=== PATIENT | female | born 1965 | race Caucasian/White ===

== ENCOUNTER 2018-09-21 07:32 | Inpatient (IN) | payer OTHER ==
[2018-09-21] VITALS (20 sets, daily range): BP systolic 95–125; BP diastolic 51–72; PULSE 64–99; RESP 13–20; Ht 157.5 cm; Wt 81.7 kg
[~2018-09-21] VITALS: Ht 157.5 cm; Wt 81.7 kg
[~2018-09-21 07:32] MED LIST: DESFLURANE 15 MIN ONE; LIDOCAINE 2% (SDV) 5 ML INJ ONE; PROPOFOL 200 MG INJ ONE
[2018-09-21] MEDS ORDERED: SERT100T PO (08:24)
[2018-09-21] MEDS ORDERED: TRAZ150T65 PO (08:25)
[2018-09-21] MEDS ORDERED: BUSP10TA2 PO (08:25)
[2018-09-21] MEDS ORDERED: LACTATED RINGER'S 1,000 ML IV SCH (08:30)
--- NOTE | 2018-09-21 08:51 | PREAC ---
Date/Time of Note Date/Time of Note DATE: 09/21/18 TIME: 08:50 Anesthesia Eval and Record Evaluation Time Pre-Procedure Interview DATE: 09/21/18 TIME: 08:50 Age 53 Sex female NPO: 8 hrs Preoperative diagnosis fibroids Planned procedure MARY KATE Past Medical History Past Medical History: Includes GI: Obesity Psych: Depression Surgery & Anesthesia Issues No known issue Meds Anticoagulation: No Beta Delmar within 24 hr: No Reason Beta Delmar not given: Pt. not on B-Delmar Reported Medications Trazodone Hcl* (Trazodone Hcl*) 150 Mg Tablet, 150 MG PO QHS, #30 TAB 09/21/18 Buspirone Hcl* (Buspirone Hcl*) 10 Mg Tab, 15 MG PO DAILY, TAB 09/21/18 Sertraline Hcl* (Zoloft*) 100 Mg Tablet, 100 MG PO DAILY, #30 TAB 09/21/18 Current Medications Lactated Ringer's 1,000 ml @ 25 mls/hr Q24H IV Last administered on 09/21/18at 08:09; Admin Dose 25 MLS/HR; Start 09/21/18 at 08:30 Meds reviewed: Yes Allergies Coded Allergies: No Known Allergy (Unverified , 09/21/18) Allergies Reviewed: Yes Labs/Studies Labs Reviewed: Reviewed by anesthesiologist Blood Bank Test 09/21/18 07:48 09/21/18 08:08 Blood Product Summary Counts Blood Type O POSITIVE test: N/A Pre-procedure Exam Last vitals Vital Signs Date Temp Pulse Resp B/P (MAP) Pulse Ox O2 O2 Flow FiO2 Time Delivery Rate 09/21/18 96.9 96 16 125/63 95 Room Air 07:52 (83) Airway: Adequate mouth opening, Adequate thyromental dist Mallampati: Mallampati II Teeth: Normal Lung: Normal Heart: Normal ASA Physical Status ASA physical status: 2 Emergency: None Planned Anesthetic General/MAC: ETT Neuraxial: Spinal Nerve block: TAP (bilateral) Planned Pain Management Sub-arachniod narcotics Pre-operative Attestations Prior to commencing anesthesia and surgery, the patient was re-evaluated, there was verification of: *The patient's identity *The results of appropriate recent lab work and preoperative vital signs *The above evaluation not changing prior to induction *Anesthetic plan, risk benefits, alternative and complications discussed with patient/family; questions answered; patient/family understands, accepts and wishes to proceed. ROSALIO MARRUFO Sep 21, 2018 08:51
[2018-09-21] MEDS ORDERED: DIPHENHYDRAMINE 50 MG INJ IV PRN (09:00)
[2018-09-21] MEDS ORDERED: ALBUTEROL 0.083% (NEB) 2.5 MG/3 ML AMP HHN PRN (09:00)
[2018-09-21] MEDS ORDERED: MEPERIDINE 25 MG INJ IV PRN (09:00)
[2018-09-21] MEDS ORDERED: ONDANSETRON 4 MG INJ IV PRN (09:00)
[2018-09-21] MEDS ORDERED: FENTAnyl 50 MCG/ML VIAL IV PRN ×3 (09:00)
[2018-09-21] MEDS ORDERED: HYDROmorphONE 1 MG/5 ML IV SYRINGE IV PRN ×3 (09:00)
[2018-09-21] MEDS ORDERED: METOCLOPRAMIDE 10 MG INJ IV PRN (09:00)
--- NOTE | 2018-09-21 09:12 | PREOPHP ---
DATE OF ADMISSION: 09/21/2018 HISTORY OF PRESENT ILLNESS: A 53-year-old female, 4, para 2, abortions 2. This patient was referred to me by her clinic due to intractable pelvic pain, menometrorrhagia, a large fibroid uterus , endometrial mass, anemia and intractability medically of her uterus with even injections of Depo sh ot, oral contraceptives and other means. The studies were done in the clinic that showed multiple fi broids with possibility of intracavitary fibroids. The patient had an ultrasound that revealed that she has multiple fibroids and she is undergoing a hysterectomy and bilateral salpingectomy. SURGICAL HISTORY: Her history is for a laparoscopic cholecystectomy, D and C, face surgery and nose. ALLERGIES: SHE IS NOT ALLERGIC TO ANY MEDICATIONS. MEDICATIONS: She is only on vitamins and iron due to her chronic bleeding and anemia. FAMILY HISTORY: Noncontributory. MEDICATIONS: The patient takes ibuprofen at times when she has severe pain and she gets partially rel ieved pain. PHYSICAL EXAMINATION: GENERAL APPEARANCE: The patient is anemic. VITAL SIGNS: Blood pressure is 120/90, temperature is afebrile. She weighs 184. She is 5 feet 2 in ches. HEAD AND NECK: Normal. BREASTS: Soft, nontender, no masses. CHEST: Clear. HEART: Normal sinus rhythm. BACK: Normal. ABDOMEN: Soft. No masses. PELVIC: External genitalia is negative. The cervix was examined being large and the uterus large, p alpable with multiple masses. Adnexa were unable to differentiate from the lumpiness of the uterus. DIAGNOSES: Intractable pelvic pain, menometrorrhagia, anemia, multiple large fibroid uterus, endometr ial mass and anemia. PLAN: She is undergoing a TAHBS. The patient was fully evaluated and she had a CT scan that revealed that there was no lymphadenopathy and a clear chest x-ray. She has been advised of the possible ris ks and possible complications of the procedure with her alternatives and options. Written informatio n was provided. She had no more questions and agreed to go ahead with the procedure with full unders tanding and no more questions. Dictated By: PRANEETH MANZANO/DARRICK Conf#: [id number] DID#: [id number]
--- NOTE | 2018-09-21 09:13 | HPN ---
Date/Time of Note Date/Time of Note DATE: 09/21/18 TIME: 09:13 Interval H&P Admission Note Pt. seen H&P reviewed: No system changes PRANEETH BAUMAN MD Sep 21, 2018 09:13
[2018-09-21] MEDS ORDERED: MIDAZOLAM 1 MG/ML 2 ML INJ ONE (09:23)
[2018-09-21] MEDS ORDERED: FENTAnyl 50 MCG/ML VIAL ONE (09:23)
[2018-09-21] MEDS ORDERED: morphine SULFATE/PF (10 MG/10 ML) INJ ONE (09:27)
[2018-09-21] MEDS ORDERED: ROPIVACAINE 0.5 % 30 ML VIAL ONE (09:41)
[2018-09-21] MEDS ORDERED: SUGAMMADEX SODIUM 200 MG/2 ML VIAL IV ONE (11:44)
[2018-09-21] MEDS ORDERED: ROCURONIUM 50 MG INJ ONE (11:44)
[2018-09-21] MEDS ORDERED: SUCCINYLCHOLINE CHLORIDE 100 MG/5 ML SYG IV ONE (11:44)
[2018-09-21] MEDS ORDERED: CEFAZOLIN 1 GM INJ ONE (11:44)
--- NOTE | 2018-09-21 12:12 | SIPON ---
Date/Time of Note Date/Time of Note DATE: 09/21/18 TIME: 12:09 Operative Report Preoperative Diagnosis Intractable pelvic pain and menometrorrhagia. Anemia Large multiple fibroid uterus Endometrial mass Possible admissions Hypertension Obesity Postoperative Diagnosis Same Operation/Procedure Performed Total abdominal hysterectomy bilateral salpingectomy Surgeon see signature line assistant to the director Ms Brittni MUÑOZ Anesthesia: general Estimated blood loss: 0 - 10 ml's Transfusion Required none Specimen Uterus and tubes Grafts/Implants none Complications none PRANEETH BAUMAN MD Sep 21, 2018 12:12
[2018-09-21] MEDS ORDERED: ONDANSETRON INJ 6 MG in DEXTROSE 5% 50 ML IVPB PRN (12:30)
[2018-09-21] MEDS ORDERED: DIPHENHYDRAMINE 50 MG CAP PO PRN (12:30)
[2018-09-21] MEDS ORDERED: ZOLPIDEM 5 MG TAB PO PRN (12:30)
[2018-09-21] MEDS: LACTATED RINGER'S 1,000 ML IV SCH ×2 (13:21→20:46)
[2018-09-21] MEDS: KETOROLAC 30 MG INJ IV SCH ×2 (13:21→18:46)
[2018-09-21] MEDS: CEFAZOLIN 1 GM/50 ML (PMX) 50 ML IVPB SCH ×2 (14:00→20:46)
--- NOTE | 2018-09-21 15:06 | OPR ---
DATE OF OPERATION: 09/21/2018 PROCEDURE: Total abdominal hysterectomy, bilateral salpingectomy. PREOPERATIVE DIAGNOSES: 1. Intractable pelvic pain, menometrorrhagia and anemia, large multiple fibroid uterus. 2. Endometrial mass, pelvic adhesions, hypertension. POSTOPERATIVE DIAGNOSES: 1. Intractable pelvic pain, menometrorrhagia and anemia, large multiple fibroid uterus. 2. Endometrial mass, pelvic adhesions, hypertension. 3. Obesity. SURGEON: Praneeth Garcia MD GROCERY CLERK STOCKING: TONI José ANESTHESIOLOGIST: Koko Dorantes MD ANESTHESIA: Duramorph and general anesthesia. COMPLICATIONS: None. PROCEDURE: The patient was given Duramorph and general anesthesia, placed in the supine position. A Burton catheter was placed in the bladder. A transverse incision was made suprapubically over the mi dline for about 10 cm in length. The abdominal cavity was reached and the exploration of the cavity revealed that the uterus was very large with multiple fibroids. Both tubes and ovaries were normal. The uterus was held and with the bipolar instrument, the round ligaments were clamped, burned and cu t in both sides and then the ovarian ligament and tube were treated the same way. The Metzenbaum wer e used to cut on the anterior broad ligament and the bladder flap was pushed down and then the skelet onization of the uterine vessels were done and the instruments, the bipolar voyant instrument was use d for the cauterization of both uterine vessels. The cardinal ligaments and uterosacral ligaments we re clamped with straight clamps and at this time, the uterus was cut at the level of the cervix for v isualization. The uterosacral ligaments and cardinal ligaments were cut and ligated with #1 Vicryl a nd at this point, the posterior vaginal cuff was entered with scissors and Carmen's were used and the whole cervix was removed holding the lateral parts of the vagina and the posterior and anterior wall . The rsubpo-wz-mtsrg suture was used in both corners of the vagina and the vagina was closed with i nterrupted sutures with #1 Vicryl. Hemostasis was good. The cavity was checked under water and it w as with small oozing from the back of the bladder that was sutured with a single stitch with 2-0 Vicr yl. Hemostasis was good again and at this point, the ureters were tracked down far away from our delmi jordyn. This was done in both sides. The right and left tube were held with peons and the mesosalpinx was clamped with a Geraldo and removed and the tube was removed. The ycyiky-df-ricma sutures with an 0 Vicryl were used on this area and good hemostasis was observed. Both ovaries were normal and func tioning. There were no signs of endometriosis. The piece of Surgicel was left in the vaginal cuff a nd both ovaries were covered with Interceed that possibly prevent adhesions. The sponge counts and i nstrument counts were correct. Intravenous antibiotics were given for prophylaxis. The peritoneum w as closed with a 2-0 Vicryl suture, #0 PDS looped suture for the fascia, 2-0 Vicryl for the subcutane ous tissue, 3-0 Monocryl subcuticular to the skin. Dermabond was used and a pressure dressing. The patient tolerated the procedure well and left the OR awake and stable. Sponge counts, instrument cou nts and needle counts were correct again and intravenous antibiotics were given for prophylaxis. The patient left the OR awake and stable. Dictated By: PRANEETH MANZANO/DARRICK Conf#: [id number] DID#: [id number]
[2018-09-21] MEDS: HYDROCODONE/APAP (5/325) TAB PO PRN (16:04)
--- NOTE | 2018-09-21 16:52 | RADRPT ---
Vent Rate: 76 bpm RR Interval: 788 msec [place] Interval: 194 msec QRS Duration: 84 msec QT Interval: 424 msec QTC Interval: 478 msec P-R-T [place]: 41 - 41 - 31 degrees Sinus rhythm...normal P axis, V-rate 50- 99 Electronically Signed By: Dipak Cuba
[2018-09-21] MEDS: METOCLOPRAMIDE 10 MG TAB PO SCH (18:00)
[2018-09-21] MEDS: traZODone 50 MG TAB PO SCH (20:46)
[2018-09-21] MEDS: BUSPIRONE 5 MG TAB PO SCH (20:46)
[2018-09-21] MEDS: ENOXAPARIN 30 MG/0.3 ML SYG SC SCH (20:48)
[2018-09-22] MEDS: METOCLOPRAMIDE 10 MG TAB PO SCH ×4 (00:03→17:18)
[2018-09-22] MEDS: KETOROLAC 30 MG INJ IV SCH ×4 (00:03→17:18)
[2018-09-22 00:20] VITALS: BP 90/52; PULSE 67; RESP 18
[2018-09-22 04:49] VITALS: BP 94/50; PULSE 77; RESP 18
[2018-09-22] MEDS: CEFAZOLIN 1 GM/50 ML (PMX) 50 ML IVPB SCH (05:06)
[2018-09-22] MEDS: LACTATED RINGER'S 1,000 ML IV SCH (05:07)
--- NOTE | 2018-09-22 08:16 | PN ---
Date/Time of Note Date/Time of Note DATE: 09/22/18 TIME: 08:14 Assessment/Plan Lines/Catheters IV Catheter Type (from Nrsg): Peripheral IV Subjective 24 Hr Interval Summary Day 1 postop Afebrile. Feels good No hemoglobin but she has no symptoms due to chronic anemia Patient will have IV iron Encouraged ambulation Tolerating diet Incision healing well Constitutional: no complaints Pain Control: moderate Detailed Summary Eyes: no complaints ENT: no complaints Respiratory: no complaints Cardiovascular: no complaints Gastrointestinal: no complaints Genitourinary: no complaints Musculoskeletal: no complaints Skin: no complaints Neurologic: no complaints Endocrine: no complaints Lymphatic: no complaints Psychological: no complaints, nl mood/affect Immunologic: no complaints Exam/Review of Systems Vital Signs Vitals Vital Signs Date Temp Pulse Resp B/P (MAP) Pulse Ox O2 O2 Flow FiO2 Time Delivery Rate 09/22/18 98.2 77 18 94/50 (65) 96 04:49 09/21/18 Room Air 15:30 09/21/18 2.0 14:15 Intake and Output 09/21/18 09/21/18 09/22/18 1515:00 23:00 07:00 IntakeIntake Total 2000 ml 1150 ml 1750 ml OutputOutput Total 90 ml 200 ml 1000 ml BalanceBalance 1910 ml 950 ml 750 ml Exam Constitutional: alert, oriented, well developed Psych: no complaints, nl mood/affect Head: normocephalic, atraumatic Eyes: nl conjunctiva, EOMI, nl lids, nl sclera ENMT: nl external ears & nose, nl lips & teeth, nl nasal mucosa & septum, mucosa pink and moist Neck: supple, non-tender Respiratory: clear to auscultation, normal air movement Cardiovascular: regular rate and rhythm, nl pulses Gastrointestinal: soft, nl liver, spleen, non-tender Musculoskeletal: nl extremities to inspection, nl gait and stance Extremities: normal pulses Neurological: NAPHTHALENE OPERATOR II-XII intact, nl mental status, nl speech, nl strength Skin: nl turgor, rash or lesions Lymph: nl lymph nodes Results Result Diagram: 09/22/18 0456 09/22/18 0456 PRANEETH BAUMAN MD Sep 22, 2018 08:16
[2018-09-22 08:21] VITALS: BP 90/57; PULSE 78; RESP 18
[2018-09-22] MEDS: BUSPIRONE 5 MG TAB PO SCH ×3 (09:07→21:24)
[2018-09-22] MEDS: SERTRALINE 100 MG TAB PO SCH (09:07)
[2018-09-22] MEDS: ENOXAPARIN 30 MG/0.3 ML SYG SC SCH ×2 (09:19→21:29)
[2018-09-22] MEDS: HYDROCODONE/APAP (5/325) TAB PO PRN ×2 (10:28→21:36)
[2018-09-22] MEDS ORDERED: SENNA TAB PO PRN (10:30)
[2018-09-22] MEDS: SOD FERRIC GLUC COMPLX 125 MG in SOD CHLORIDE 0.9% 100 ML IVPB SCH (14:13)
[2018-09-22 14:25] VITALS: BP 116/58; PULSE 74; RESP 18
--- NOTE | 2018-09-22 15:30 | PAC ---
Date/Time of Note Date/Time of Note DATE: 09/22/18 TIME: 15:30 Post-Anesthesia Notes Post-Anesthesia Note Last documented vital signs Vital Signs Date Temp Pulse Resp B/P (MAP) Pulse Ox O2 O2 Flow FiO2 Time Delivery Rate 09/22/18 98.5 74 18 116/58 97 14:25 (77) 09/21/18 Room Air 15:30 09/21/18 2.0 14:15 Activity: WNL Respiratory function: WNL Cardiovascular function: WNL Mental status: Baseline Pain reasonably controlled: Yes Hydration appropriate: Yes Nausea/Vomiting absent: Yes ROSALIO MARRUFO Sep 22, 2018 15:30
[2018-09-22 19:18] VITALS: BP 120/63; PULSE 88; RESP 20
[2018-09-22] MEDS: traZODone 50 MG TAB PO SCH (21:24)
[2018-09-22] MEDS ORDERED: BISACODYL (EC) 5 MG TAB PO ONE (22:00)
[2018-09-23] MEDS: METOCLOPRAMIDE 10 MG TAB PO SCH ×4 (00:15→17:57)
[2018-09-23] MEDS: KETOROLAC 30 MG INJ IV SCH ×2 (00:15→06:00)
[2018-09-23 02:22] VITALS: BP 119/57; PULSE 80; RESP 18
[2018-09-23 08:48] VITALS: BP 110/59; PULSE 72; RESP 18
[2018-09-23] MEDS: BUSPIRONE 5 MG TAB PO SCH ×3 (08:52→21:32)
[2018-09-23] MEDS: SERTRALINE 100 MG TAB PO SCH (08:52)
[2018-09-23] MEDS: ENOXAPARIN 30 MG/0.3 ML SYG SC SCH (08:54)
--- NOTE | 2018-09-23 10:12 | PN ---
Date/Time of Note Date/Time of Note DATE: 09/23/18 TIME: 10:10 Assessment/Plan Lines/Catheters IV Catheter Type (from Nrsg): Saline Lock Burton in Place (from Nrsg): Yes Subjective 24 Hr Interval Summary Second day post operative feeling good . Afebrile, passing gases, ambulatory, with anxiety and hot flashes incision healing well . Encouraged ambulation Feeding: advancing diet Pain Control: mild Detailed Summary Eyes: no complaints ENT: no complaints Respiratory: no complaints Cardiovascular: no complaints Gastrointestinal: no complaints Genitourinary: no complaints Musculoskeletal: no complaints Skin: no complaints Neurologic: no complaints Endocrine: no complaints Lymphatic: no complaints Psychological: no complaints, nl mood/affect Immunologic: no complaints Exam/Review of Systems Vital Signs Vitals Vital Signs Date Temp Pulse Resp B/P (MAP) Pulse Ox O2 O2 Flow FiO2 Time Delivery Rate 09/23/18 97.8 72 18 110/59 94 Room Air 08:48 (76) 09/21/18 2.0 14:15 Intake and Output 09/22/18 09/22/18 09/23/18 1515:00 23:00 07:00 IntakeIntake Total 1215 ml 580 ml BalanceBalance 1215 ml 580 ml Exam Constitutional: alert, oriented, well developed Psych: no complaints, nl mood/affect Head: normocephalic, atraumatic Eyes: nl conjunctiva, EOMI, nl lids, nl sclera ENMT: nl external ears & nose, nl lips & teeth, nl nasal mucosa & septum, mucosa pink and moist Neck: supple, non-tender Respiratory: clear to auscultation, normal air movement Cardiovascular: regular rate and rhythm, nl pulses Gastrointestinal: soft, nl liver, spleen, non-tender Musculoskeletal: nl extremities to inspection, nl gait and stance Extremities: normal pulses Neurological: RESEARCH WORKER KITCHEN II-XII intact, nl mental status, nl speech, nl strength Skin: nl turgor, rash or lesions Lymph: nl lymph nodes Results Result Diagram: 09/22/18 0456 09/22/18 0456 PRANEETH BAUMAN MD Sep 23, 2018 10:12
[2018-09-23] MEDS ORDERED: ESTRADIOL VALERATE 100 MG/5 ML INJ IM ONE (11:30)
[2018-09-23] MEDS ORDERED: ESTRADIOL VALERATE 20 MG/0.5 ML INJ IM ONE (11:30)
[2018-09-23] MEDS: HYDROCODONE/APAP (5/325) TAB PO PRN (11:34)
[2018-09-23] MEDS: SOD FERRIC GLUC COMPLX 125 MG in SOD CHLORIDE 0.9% 100 ML IVPB SCH (12:22)
[2018-09-23] MEDS ORDERED: ALPRAZOLAM 0.5 MG TAB PO PRN (12:30)
[2018-09-23 14:00] VITALS: BP 112/60; PULSE 74; RESP 18
[2018-09-23 20:35] VITALS: BP 154/78; PULSE 77; RESP 20
[2018-09-23] MEDS ORDERED: ALPRAZOLAM 0.5 MG TAB PO SCH (21:00)
[2018-09-23] MEDS: traZODone 50 MG TAB PO SCH (21:32)
[2018-09-24] MEDS: METOCLOPRAMIDE 10 MG TAB PO SCH ×3 (00:08→12:02)
[2018-09-24 02:07] VITALS: BP 149/75; PULSE 77; RESP 18
[2018-09-24] MEDS: HYDROCODONE/APAP (5/325) TAB PO PRN ×2 (04:53→12:03)
[2018-09-24] MEDS ORDERED: ENOXAPARIN 40 MG/0.4 ML SYG SC SCH (09:00)
[2018-09-24] MEDS: BUSPIRONE 5 MG TAB PO SCH ×2 (09:11→12:02)
[2018-09-24] MEDS: SERTRALINE 100 MG TAB PO SCH (09:11)
[2018-09-24] MEDS: SOD FERRIC GLUC COMPLX 125 MG in SOD CHLORIDE 0.9% 100 ML IVPB SCH ×2 (12:21→13:00)
--- NOTE | 2018-09-24 13:54 | PD.PPDC ---
EYEGLASS CUTTER Discharge Instruction Condition [id number] Patient Condition: [id number] Good Diet [id number] Diet: Sqzro2l Resume Regular Diet Activity/Restrictions [id number] Activity: [id number] Normal Activity May Shower [id number] Restrictions: Emxje4u No Exercising No Lifting No Driving No Sexual Activity Nothing in the Vagina No [place] No Tampons, douche Wound/Drain Care Instructions [id number] Wound/Drain Care Instructions: Jylsh2k Wash with soap and water Keep clean and dry Follow-up Follow-up with Physician: 1, Week/Weeks Return to clinic for [id number] FINANCIAL AID ADVISOR Instructions: Qymhy3s Fever greater than 101 Chills Worsening abdominal pain Excessive Vaginal Bleeding More than 2 pads per hour Unable to tolerate diet [id number] Surgical Instructions: Xtoer3d Incisional Drainage Incisional Redness PRANEETH BAUMAN MD Sep 24, 2018 13:54
--- NOTE | 2018-09-24 14:02 | DS ---
Date/Time of Note Date/Time of Note DATE: 09/24/18 TIME: 13:57 Discharge Summary Admission/Discharge Info Admit Date/Time Sep 21, 2018 at 07:32 Discharge Date/Time September 24, 2018 Discharge Diagnosis Intractable pelvic pain and bleeding Large fibroid uterus Adenomyosis Patient Condition: Good Procedures Total abdominal hysterectomy bilateral salpingectomy Hx of Present Illness 53 years old female multigravida who had been suffering the presence of a fi broid uterus with intractable pelvic pain and bleeding and anemia and she was referred [facility] Hospital Course The patient underwent the procedure without complications. she was doing very well, on her third day she was ambulatory and tolerating diet with a clean incision with a bowel movement and voiding well. Her pain was controlled on p.o. medications.. She was discharged home with father instructions of what to do and not to do at home. She was explained of all her possible complications, instructions of how to reach me as an emergency and to see me in the office in 1 week. Pain medication was given as prescription for [place] and ibuprofen.. The pathology report is benign Home Meds Reported Medications Trazodone Hcl* (Trazodone Hcl*) 150 Mg Tablet, 150 MG PO QHS, #30 TAB 09/21/18 Buspirone Hcl* (Buspirone Hcl*) 10 Mg Tab, 15 MG PO DAILY, TAB 09/21/18 Sertraline Hcl* (Zoloft*) 100 Mg Tablet, 100 MG PO DAILY, #30 TAB 09/21/18 Primary Care Provider Not On Staff Doctor Time spent on discharge: < 30 minutes PRANEETH BAUMAN MD Sep 24, 2018 14:02
== END 2018-09-24 14:41 | disposition home or self-care (01) | DRG 743 ==
LOC: REC 07:32 → MS1 12:41
PROVIDERS: ADMIT Obstetrics & Gynecology; ATTEND Obstetrics & Gynecology
PROC: 0UT70ZZ Resection of Bilateral Fallopian Tubes, Open Approach (ICD-10-PCS; 2018-09-21)
PROC: 0UT90ZZ Resection of Uterus, Open Approach (ICD-10-PCS; principal; 2018-09-21 09:00)
DX: D25.9 Leiomyoma of uterus, unspecified (principal); I10 Essential (primary) hypertension; E66.9 Obesity, unspecified; D64.9 Anemia, unspecified; N80.0 Endometriosis of uterus
CPT/HCPCS: 80051; 82565; 84520; 85025; 86850; 86900; 86901; 86920; 87086; 88305; 93005; J1380; J0690; J1170; J1650; J1885; J2175; J2250; J2274; J2405; J2795; J2916; J3010; J7120